=== PATIENT | female | born 1950 | race Caucasian/White ===

== ENCOUNTER 2018-07-29 10:56 | Emergency (ER) | payer MEDICARE | END 2018-07-29 12:43 | disposition home or self-care (01) | LOC: EDH 10:56 | DX: S83.8X1A Sprain of other specified parts of right knee, initial encounter (principal); S53.492A Other sprain of left elbow, initial encounter; Z88.0 Allergy status to penicillin; Z88.2 Allergy status to sulfonamides; Z79.899 Other long term (current) drug therapy; Z98.890 Other specified postprocedural states; Z98.51 Tubal ligation status; W18.39XA Other fall on same level, initial encounter; Y93.01 Activity, walking, marching and hiking; Y92.89 Other specified places as the place of occurrence of the external cause; Y99.8 Other external cause status | CPT/HCPCS: 73080; 73562 ==